=== PATIENT | male | born 1985 | race African-American/Black ===

== ENCOUNTER 2020-05-19 00:59 | Observation (INO) ==
[2020-05-19] MEDS ORDERED: AMPICILLIN/SULBACTAM 1,500 MG in SODIUM CHLORIDE 0.9% 100 ML IV STA (01:40)
[2020-05-19] MEDS ORDERED: LIDOCAINE 1% 20 ML VIAL INFILTRAT STA (01:40)
[2020-05-19] MEDS ORDERED: ONDANSETRON 4 MG/2 ML VIAL IV PRN (01:48)
[2020-05-19 02:07] LABS: PT Patient Result 11.1 SECS (9.8-11.9); Partial Thromboplastin Time 28.3 SECS (23.9-33.8)
[2020-05-19] MEDS: DEXTROSE 5% NACL 0.45% 1,000 ML IV SCH ×2 (02:07→13:01)
[2020-05-19 02:09] LABS: Alanine Aminotransferase 32 U/L (16-61); Albumin 3.7 G/DL (3.4-5.0); Alkaline Phosphatase 87 U/L (45-117); Aspartate Amino Transferase 32 U/L (0-37); Bilirubin,Total < 0.39 MG/DL (0.2-1.0); Blood Urea Nitrogen 10 MG/DL (7-18); Calcium 8.6 MG/DL (8.5-10.1); Carbon Dioxide 25 MMOL/L (21-32); Estimated Glom Filtration Rate 141 ML/MIN; Glucose 105 MG/DL (74-106); Osmolality,Calculated 268.1 MOS/KG (273-304); Potassium 3.7 MMOL/L (3.5-5.1); Sodium 135 MMOL/L (136-145); Total Protein 7.4 G/DL (6.4-8.2)
[2020-05-19] MEDS: KETOROLAC 30 MG/1 ML VIAL IV PRN ×2 (02:10→08:13)
[2020-05-19] MEDS: MORPHINE 4 MG/1 ML VIAL IV PRN ×2 (02:13→17:55)
[2020-05-19 02:15] LABS: Basophils # 0.1 10*3/uL (0.0-0.2); Basophils % 0.6 % (0.0-0.8); Eosinophils # 0.1 10*3/uL (0.0-0.87); Eosinophils % 0.7 % (0.00-10.9); Hematocrit 40.4 VOL% (42.0-52.0); Hemoglobin 13.6 GM/DL (14.0-18.0); Immature Granulocytes % 0.2 %; Immature Granulocytes Absolute 0.02 #; Lymphocytes # 2.7 10*3/uL (1.4-4.0); Lymphocytes % 32.4 % (21.2-54.2); Mean Corpuscular HGB Conc 33.7 GM/DL (32-36); Mean Corpuscular Volume 94.2 FL (87-102); Monocytes % 5.7 % (1.7-12.7); Neutrophils % 60.4 % (38.7-73.9); Platelet Count 182 T/CUMM (130-400); Red Blood Count 4.29 MC/CUMM (3.8-5.5); Red Cell Distribution Width 13.3 % (9.3-17.3); White Blood Count 8.4 T/CUMM (4-12)
[2020-05-19] MEDS: PANTOPRAZOLE 40 MG VIAL IV SCH (08:06)
[2020-05-19] MEDS ORDERED: AMPICILLIN/SULBACTAM 1,500 MG in SODIUM CHLORIDE 0.9% 100 ML IV SCH (08:30)
[2020-05-19] MEDS: ENOXAPARIN 40 MG/0.4 ML SYRINGE SUBCUT SCH (13:01)
[2020-05-20] MEDS: MORPHINE 4 MG/1 ML VIAL IV PRN ×3 (04:04→15:42)
[2020-05-20] MEDS: PANTOPRAZOLE 40 MG VIAL IV SCH (08:59)
[2020-05-20] MEDS: ENOXAPARIN 40 MG/0.4 ML SYRINGE SUBCUT SCH (12:19)
[2020-05-21] MEDS: MORPHINE 4 MG/1 ML VIAL IV PRN (00:47)
[2020-05-21] MEDS: PANTOPRAZOLE 40 MG VIAL IV SCH (08:24)
[2020-05-21] MEDS: KETOROLAC 30 MG/1 ML VIAL IV PRN (08:25)
[2020-05-21] MEDS: ENOXAPARIN 40 MG/0.4 ML SYRINGE SUBCUT SCH (14:17)
[2020-05-22 07:33] VITALS: BP 137/62
[2020-05-22] MEDS: PANTOPRAZOLE 40 MG VIAL IV SCH (09:21)
== END 2020-05-22 10:20 | disposition home or self-care (01) ==
LOC: EDUNIT# → EDBD → N.ED 00:59 → N.EDINP 00:59 → N.3E 05:00
PROVIDERS: ADMIT Surgery; ATTEND Surgery